=== PATIENT | female | born 2000 | race Caucasian/White ===

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

== ENCOUNTER 2023-03-15 16:01 | Emergency (ER) | payer OTHER ==
[~2023-03-15 16:01] MED LIST: MIRALAX POWDER17 G1 PO
== END 2023-03-15 18:14 | disposition left against medical advice (07) ==
LOC: ED 16:01
DX: O62.9 Abnormality of forces of labor, unspecified (principal); Z53.21 Procedure and treatment not carried out due to patient leaving prior to being seen by health care provider; Z3A.08 8 weeks gestation of pregnancy